=== PATIENT | female | born 1970 | race American Indian/Alaskan Native ===

== ENCOUNTER 2019-05-16 05:49 | Emergency (ER) | payer OTHER ==
[2019-05-16] MEDS ORDERED: NACL 0.9% 1000 ML 1,000 ML IV ONE ×2 (06:19→06:34)
[2019-05-16 06:39] VITALS: BP 101/56
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
== END 2019-05-16 08:50 | disposition left against medical advice (07) ==
LOC: ED 05:49
DX: F10.929 Alcohol use, unspecified with intoxication, unspecified (principal); I10 Essential (primary) hypertension; Z88.8 Allergy status to other drugs, medicaments and biological substances; V47.9XXA Unspecified car occupant injured in collision with fixed or stationary object in traffic accident, initial encounter; Y93.89 Activity, other specified; Y92.89 Other specified places as the place of occurrence of the external cause; Y99.8 Other external cause status
CPT/HCPCS: 99282; J7030